=== PATIENT | female | born 1955 ===

== ENCOUNTER → 2022-11-06 17:32 | Outpatient (ROUT) | payer SELFPAY ==
[2022-11-06 18:08] LABS: T4 Total Thyroxine 9.12 ug/dL (5.5-11.0)
[2022-11-07 07:40] LABS: Triiodothyronine T3 Total 115 ng/dL (71-180)
== END ==
PROVIDERS: Visit Provider Nurse Practitioner
DX: E03.9 Hypothyroidism, unspecified (principal); R53.82 Chronic fatigue, unspecified; A69.29 Other conditions associated with Lyme disease
CPT/HCPCS: 84436; 84443; 84480